=== PATIENT | male | born 1955 | race Caucasian/White ===

== ENCOUNTER 2025-01-24 02:04 | Emergency (ER) | payer MEDICARE, SELFPAY ==
[2025-01-24 02:09] VITALS: BP 161/86
[2025-01-24 02:30] LABS: Urine Character Clear (Clear)
[2025-01-24 02:34] LABS: Hematocrit 48.3 % (39.0-52.0); Hemoglobin 17.2 g/dL (13.0-18.0); Mean Corp Hgb Conc. 35.6 g/dL (33.0-37.0); Mean Corpuscular Volume 91.0 fL (80.0-94.0); Nucleated Red Blood Cells % 0 % (-); Platelet Count 220 10^3/uL (130-400); Red Cell Dist. Width 12.4 % (11.5-14.5)
[2025-01-24 03:24] LABS: Urine Squamous Cell 0-2 /LPF (Few); Urine White Cell 0-2 /HPF (0-5)
[2025-01-24 03:28] LABS: ALT (SGPT) 19 U/L (0-50); AST (SGOT) 24 U/L (17-59); Albumin 4.3 g/dl (3.5-5.0); Alkaline Phosphatase 94 U/L (38-126); Blood Urea Nitrogen 23 mg/dl (9-20); Calcium 9.3 mg/dl (8.4-10.2); Carbon Dioxide 27 mmol/L (22-30); Chloride 102 mmol/L (98-107); Glucose 192 mg/dl (70-99); Lipase 89 U/L (23-300); Potassium 4.3 mmol/L (3.5-5.1); Sodium 136 mmol/L (135-145); Total Protein 7.2 g/dl (6.3-8.2); eGFR > 60.00
== END 2025-01-24 04:49 ==
LOC: EMR 02:04
PROVIDERS: Emergency Medicine; FAMILY PHYSICIAN Internal Medicine
DX: R10.30 Lower abdominal pain, unspecified (principal)
CPT/HCPCS: 80053; 81003; 81015; 83690; 85025

== ENCOUNTER 2025-01-24 09:00 | Emergency (ER) | payer MEDICARE, SELFPAY ==
[2025-01-24 09:04] VITALS: BP 141/91
--- NOTE | 2025-01-24 10:17 | ED.GENMED ---
History of Present Illness
General
Chief Complaint: Abdominal Pain
Source: patient
Exam Limitations: none
Time Seen by Provider: 01/24/25 09:46
Nursing documentation reviewed up to this point in time: agreed with
History of Present Illness
History of Present Illness:
69-year-old male with a past medical history of diabetes, diverticulitis status post partial bowel resection in the past, prior kidney stones who presents to the emergency department for evaluation of abdominal pain. Patient reports symptoms have
been intermittent for the past few weeks but over the past few days much more severe. He reports a sharp pain in the right lower quadrant. Does not radiate. He denies any clear triggering or relieving factors noted. He reports some mild
constipation, no diarrhea. No nausea or vomiting. Has not noted any dysuria, hematuria, change in urinary frequency. He denies fever or chills. He does have a history of kidney stones but says that symptoms today are different from typical
kidney stone pain. He did initially come to the ER last night but left due to wait time�labs were drawn in triage at that time but no imaging.
Review of Systems
Review of Systems
All Other Systems: ROS reviewed and negative except as documented in HPI and ROS
Constitutional: Denies fever
Respiratory: Denies trouble breathing
Cardiac: Denies chest pain
ABD/GI: Reports abdominal pain and constipated; Denies nausea, vomiting or diarrhea
: Denies dysuria, frequency, flank pain or bleeding
Musculoskeletal: Denies neck pain or back pain
Neurological: Denies dizzy or headache
Phy Exam
Physical Exam
Physical Exam:
General: Awake, alert, oriented x3; no acute distress
Head: Normocephalic, atraumatic
Eyes: Conjunctiva normal, sclera anicteric
Throat: Airway intact, handling secretions
Neck: Trachea midline, supple without meningismus
Lungs: Clear to auscultation bilaterally, no wheezing, rales, rhonchi
Heart: Regular rate and rhythm, no murmurs, gallops, or rubs
Abd: Soft, non distended, mild tenderness right lower quadrant, no palpable masses or hernia
Back: No CVA tenderness
Neuro: Cranial nerves grossly intact, speech fluid, ambulatory with normal gait
Skin: No rash in area of concern
Extremities: No edema in extremities, warm and well-perfused
Scores
Heart Failure Risk
Heart Failure Risk Score: Not Applicable
Heart Score for Chest Pain Patients
STEMI patient?: Not applicable
Withdrawal Assessment of Alcohol
Withdrawal Assessment Completed?: Not applicable
Course
Orders/Labs/Results
Orders:
Orders
01/24/25 09:48
CT Abd/pel W Iv And Oral Contr Urgent
Comment:
Reason For Exam: RLQ abd pain
Iohexol [Omnipaque] See Protocol PO NOW STA
01/24/25 10:25
Basic Metabolic Panel Urgent
Complete Blood Count/No Diff Urgent
Abnormal Lab Results
01/24/25
10:25
MCH 31.7 H pg
(27.0-31.0)
MPV 11.0 H fL
(7.4-10.4)
BUN 27 H mg/dl
(9-20)
Glucose 279 H mg/dl
(70-99)
01/24/25 10:25
01/24/25 10:25
Vital Signs
Initial and Last Documented VS:
Initial Vital Signs
Temp Pulse Resp BP Pulse Ox
36.9 C 69 20 141/91 98
01/24/25 09:04 01/24/25 09:04 01/24/25 09:04 01/24/25 09:04 01/24/25 09:04
Last Documented Vital Signs
Temp Pulse Resp BP Pulse Ox
36.9 C 69 20 141/91 98
01/24/25 09:04 01/24/25 09:04 01/24/25 09:04 01/24/25 09:04 01/24/25 10:23
MDM/Problems Addressed
Differential Diagnosis Includes:
Nephrolithiasis, UTI, diverticulitis, appendicitis, radiculopathy, abdominal wall strain
MDM/Problems Addressed:
69-year-old male presents for evaluation of right lower quadrant abdominal pain as described above. Vitals and exam as above. Presented in triage last night and had labs drawn which were essentially unremarkable although he did have trace
hematuria. Will plan to repeat labs to trend. Check CT abdomen pelvis. Monitor closely reassess after the above.
Repeat labs reviewed: CBC and CMP significant only for hyperglycemia random in the setting of known diabetes. CT shows no acute pathology to account for symptoms he does have bilateral renal cysts none of which appear suspicious and diverticulosis
but no signs of diverticulitis. Appendix does appear normal. His urinalysis from earlier had few bacteria but no pyuria trace hematuria. Low suspicion that this is a UTI or pyelonephritis based on clinical picture. Could be musculoskeletal pain
or pinched nerve. Will trial conservative measures and patient can be discharged to follow-up with PCP. Spoke about return precautions all questions answered.
*Radiology
Radiology exam reviewed: radiology read reviewed
*Pulse Oximetry
SaO2: 98
Oxygen Mode of Delivery: Room air
Patient hypoxic: no (98%)
*Critical Care Note
Total Time (30-74mins, 75-104mins- exclusive of procedures): Not Applicable
Data Reviewed
Review of Other/Old Records Reveals: Labs (From last night)
Source: patient
ED Attending Note
-
Portions of this chart may have been created with voice recognition software.� Occasional wrong word or��sound alike� substitutions may have occurred due to the inherent limitations of voice recognition software.
Discharge Plan
Departure
Patient Disposition: Home (Routine Discharge)
Date of Disposition: 01/24/25
Time of Disposition: 13:59
Patient with high blood pressure during this ER visit?: Yes
Discharge Problem:
Abdominal pain
Instructions: Abdominal Pain
Prescriptions:
New
methylprednisolone [Medrol (Fausto)] 4 mg tablets,dose pack
See Rx Instructions .ROUTE .COMPLEX Qty: 21 0RF
Rx Instructions:
for 6 days
Referrals:
John Florence MD [Family Provider] - Follow up in 5-7 days
Activity Restrictions/Additional Instructions:
Thank you for visiting the Emergency Department at [facility].
1. Please schedule a follow up appointment as directed. Call first thing tomorrow morning to make an appointment.
2. If indicated, please take your medications as instructed and indicated on discharge paperwork.
3. If any of your symptoms do not improve, or persist, or become more severe within 6-12 hours, please return to the emergency department for further care.
4. Please return to the emergency department if you develop a headache, neck pain/stiffness, fever greater than 100.4F, chest pain, shortness of breath, persistent nausea, vomiting, slurred speech, difficulty walking, numbness/tingling, weakness,
signs of infection or any other symptoms that are worrisome to you.
Please call [phone] if you have any questions.
Interventions
Interventions:
*Risk Screen - Suicide Last Done: 01/24/25 09:04
*Neglect/Abuse Screening Last Done: 01/24/25 09:04
[facility]-Vpvhkh-Jbnnkbadqt Assessment Last Done: 01/24/25 10:34
Discharge Date and Time
Print Language: CHILEAN
[2025-01-24 10:23] VITALS: BMI 29.5
[2025-01-24] MEDS: OMNIPAQUE 50 ML PO (10:24)
[2025-01-24 10:38] LABS: Hematocrit 47.7 % (39.0-52.0); Hemoglobin 16.5 g/dL (13.0-18.0); Mean Corp Hgb Conc. 34.6 g/dL (33.0-37.0); Mean Corpuscular Volume 91.7 fL (80.0-94.0); Platelet Count 193 10^3/uL (130-400); Red Cell Dist. Width 12.2 % (11.5-14.5)
[2025-01-24 11:03] LABS: Blood Urea Nitrogen 27 mg/dl (9-20); Calcium 9.0 mg/dl (8.4-10.2); Carbon Dioxide 26 mmol/L (22-30); Chloride 102 mmol/L (98-107); Estimated Creatinine Clearance 69 ml/min; Glucose 279 mg/dl (70-99); Potassium 4.2 mmol/L (3.5-5.1); Sodium 136 mmol/L (135-145); eGFR > 60.00
== END 2025-01-24 14:09 | disposition home or self-care (01) ==
LOC: EMR 09:00
PROVIDERS: EMERGENCY PHYSICIAN Emergency Medicine; FAMILY PHYSICIAN Internal Medicine
DX: R10.31 Right lower quadrant pain (principal); E11.65 Type 2 diabetes mellitus with hyperglycemia; K59.00 Constipation, unspecified; Z87.442 Personal history of urinary calculi
CPT/HCPCS: 99284; 74177; 80048; 85027; Q9967